=== PATIENT | female | born 1985 | race Caucasian/White ===

== ENCOUNTER 2016-09-12 01:26 | Emergency (ER) | payer MEDICAID ==
[~2016-09-12] VITALS: Ht 149.9 cm; Wt 75.0 kg
[~2016-09-12 01:26] MED LIST: ACYC800T PO; CETI10 PO; CIAL10TA PO; CLON0.5T PO; CLON0.5T16 PO; CYCL-36 PO; FLUO20CA4 PO; FLUO20TA20 PO; MIREIUD IU
[2016-09-12 01:34] VITALS: BP 116/80; PULSE 93; RESP 16; TEMP 97.9; O2SAT 98
[2016-09-12] MEDS ORDERED: ADDE10 PO (01:47)
[2016-09-12] MEDS ORDERED: SODIUM CHLOR 0.9% 1000 ML INJ 1,000 ML IV ONE (01:59)
[2016-09-12] MEDS ORDERED: ONDANSETRON HCL 4 MG/2 ML VIAL IVP ONE (02:00)
[2016-09-12] MEDS ORDERED: SODIUM CHLORIDE 0.9% FLUSH 10 ML FLUSH IVF PRN (02:00)
--- NOTE | 2016-09-12 02:09 | PD ---
HPI Chief Complaint: GI Complaint Time Seen by Provider: 01:59 Travel History International Travel<30 days: No Contact w/Intl Traveler<30days: No Traveled to known affect area: No History of Present Illness HPI 31-year-old female presents to the emergency department by private transportation the care of her and toddler for evaluation of one day of nausea vomiting and diarrhea. Patient states since approximate 4 PM she's had multiple episodes of vomiting and diarrhea. No hematemesis no coffee-ground emesis no melena hematochezia. No bilious emesis. Patient denies abdominal pain. Patient's had no fever chills. Patient denies dietary indiscretion well water ingestion or foreign travel. Her [id number] son has similar symptoms. Son symptoms reportedly began before hers. Spouse does not have same symptoms. Patient reports that sometimes the child eats some of the table food. has consumed same food and has been asymptomatic. Patient rates her pain 0/10 in intensity. Patient's had normal urine output. Patient denies any respiratory illness symptoms. Patient's last period was normal and she has an IUD. Patient denies . [facility] Past Medical History Narrative Medical ADHD and anxiety depression back pain oral surgery back surgery; no tobacco use no alcohol use; nursing notes reviewed ADHD: Yes Depression: Yes Cancer: No Cardiovascular Problems: No Diabetes: No Diminished Hearing: No Endocrine: No Genitourinary: No Hepatitis: No Hiatal Hernia: No Immune Disorder: No Musculoskeletal: No Neurologic: No Psychiatric: Yes (ANXIETY) Reproductive: No Respiratory: No Immunizations Current: Yes Thyroid Disease: No ?: Not LMP: 09/05/2016 : 1 Para: 1 Past Surgical History AICD: No Section: Yes (07/2015) Joint Replacement: No Oral Surgery: Yes (WISDOM TEETH EXTRACT.) Pacemaker: No Other Surgery: Yes (LAMINECTOMY 2013) Social History Alcohol Use: No Tobacco Use: No Substance Use: No Allergies-Medications (Allergen,Severity, Reaction): Coded Allergies: No Known Allergies (Unverified , 09/12/16) Reported Meds & Prescriptions Reported Meds & Active Scripts Active Zofran Odt (Ondansetron Odt) 4 Mg Tab 4 Mg SL Q6HR PRN Fluoxetine (Fluoxetine HCl) 20 Mg Cap 20 Mg PO DAILY Reported Adderall (Amphetamine-Dextroamphetamine) 10 Mg Tab 10 Mg PO BID Avoid late evening doses. Space doses at least 4 to 6 hours if more than once/day dosing. Review of Systems Except as stated in HPI: all other systems reviewed are Neg General / Constitutional: No: Fever, Chills HENT: No: Congestion Cardiovascular: No: Chest Pain or Discomfort Respiratory: No: Cough, Shortness of Breath Gastrointestinal: Positive: Nausea, Vomiting, Diarrhea, No: Abdominal Pain, Hematemesis, Hematochezia, Loss of Appetite Genitourinary: No: Dysuria, Flank Pain Musculoskeletal: No: Myalgias, Arthralgias Skin: No Rash Neurologic: No: Weakness Psychiatric: No: Anxiety Endocrine: No: Heat Intolerance Hematologic/Lymphatic: No: Lymph Node Enlargement Physical Exam Narrative GENERAL: Well-developed well-nourished female in no acute distress no respiratory distress SKIN: Warm and dry. HEAD: Normocephalic. EYES: No scleral icterus. No injection or drainage. ENT: Mucous membranes dry airway is patent NECK: Supple, trachea midline. No JVD or lymphadenopathy. CARDIOVASCULAR: Regular rate and rhythm without murmurs, gallops, or rubs. RESPIRATORY: Breath sounds equal bilaterally. No accessory muscle use. GASTROINTESTINAL: Abdomen soft, mild diffuse tenderness to palpation without guarding or rebound, nondistended. No guarding no rebound. MUSCULOSKELETAL: No cyanosis, or edema. BACK: Nontender without obvious deformity. No CVA tenderness. Data Data Last Documented VS Vital Signs Date Time Temp Pulse Resp B/P Pulse Ox O2 Delivery O2 Flow Rate FiO2 09/12/16 01:34 97.9 93 16 116/80 98 Orders Complete Blood Count With Diff (09/12/16 01:59) Comprehensive Metabolic Panel (09/12/16 01:59) Urinalysis - C+S If Indicated (09/12/16 01:59) Lipase (09/12/16 01:59) Iv Access Insert/Monitor (09/12/16 01:59) Ecg Monitoring (09/12/16 01:59) Oximetry (09/12/16 01:59) Ondansetron Inj (Zofran Inj) (09/12/16 02:00) Sodium Chlor 0.9% 1000 Ml Inj (Ns 1000 M (09/12/16 01:59) Sodium Chloride 0.9% Flush (Ns Flush) (09/12/16 02:00) Ed Urine Pregnancytest Poc (09/12/16 01:59) Ct Abd/Pel W Iv Contrast(Rout) (09/12/16 ) Iohexol 350 Inj (Omnipaque 350 Inj) (09/12/16 04:09) Labs Laboratory Tests Test 09/12/16 09/12/16 02:10 02:43 White Blood Count 17.2 TH/MM3 Red Blood Count 5.41 MIL/MM3 Hemoglobin 14.8 GM/DL Hematocrit 45.1 % Mean Corpuscular Volume 83.4 FL Mean Corpuscular Hemoglobin 27.3 PG Mean Corpuscular Hemoglobin 32.8 % Concent Red Cell Distribution Width 13.6 % Platelet Count 304 TH/MM3 Mean Platelet Volume 8.8 FL Neutrophils (%) (Auto) 91.6 % Lymphocytes (%) (Auto) 3.8 % Monocytes (%) (Auto) 2.1 % Eosinophils (%) (Auto) 0.4 % Basophils (%) (Auto) 2.1 % Neutrophils # (Auto) 15.6 TH/MM3 Lymphocytes # (Auto) 0.7 TH/MM3 Monocytes # (Auto) 0.4 TH/MM3 Eosinophils # (Auto) 0.1 TH/MM3 Basophils # (Auto) 0.4 TH/MM3 CBC Comment DIFF FINAL Differential Comment Sodium Level 140 MEQ/L Potassium Level 3.9 MEQ/L Chloride Level 108 MEQ/L Carbon Dioxide Level 22.8 MEQ/L Anion Gap 9 MEQ/L Blood Urea Nitrogen 15 MG/DL Creatinine 0.72 MG/DL Estimat Glomerular Filtration 94 ML/MIN Rate Random Glucose 151 MG/DL Calcium Level 8.5 MG/DL Total Bilirubin 0.4 MG/DL Aspartate Amino Transf 18 U/L (AST/SGOT) Alanine Aminotransferase 27 U/L (ALT/SGPT) Alkaline Phosphatase 110 U/L Total Protein 7.3 GM/DL Albumin 3.7 GM/DL Lipase 92 U/L Urine Color YELLOW Urine Turbidity SLIGHT Urine pH 6.0 Urine Specific [place] 1.023 Urine Protein NEG mg/dL Urine Glucose (UA) NEG mg/dL Urine Ketones NEG mg/dL Urine Occult Blood NEG Urine Nitrite NEG Urine Bilirubin NEG Urine Leukocyte Esterase NEG Urine WBC 0-2 /hpf Urine Squamous Epithelial > 8 /hpf Cells Urine Amorphous Sediment SMALL Urine Bacteria OCC /hpf Urine Mucus MOD /lpf Microscopic Urinalysis Comment CULT NOT INDICATED MDM Medical Decision Making Medical Screen Exam Complete: Yes Emergency Medical Condition: Yes Medical Record Reviewed: Yes Interpretation(s) CBC & BMP Diagram 09/12/16 02:10 Vital Signs Date Time Temp Pulse Resp B/P Pulse Ox O2 Delivery O2 Flow Rate FiO2 09/12/16 01:34 97.9 93 16 116/[address] abd/pel: No acute inflammatory process; IUD per reading radiologist, Dr Srivastava Differential Diagnosis Gastroenteritis, viral syndrome, dehydration, electronic disturbance, UTI, Narrative Course IV access obtained specimens collected and sent for resulting patient administer 1 L normal saline along with Zofran 4 mg IV CBC remarkable for leukocytosis 17,000 with left shift which reflects infectious as well as volume contracture as well as stress demargination as source for elevation left shift of 91/6 % concerning for bacterial etiology; UA pending. Add 3:20 AM patient reassessed and identified to have tenderness to the right lower quadrant will proceed with CT abdomen and pelvis with IV contrast to assess for appendicitis Patient feels markedly improved, taking oral hydration well, informed of imaging results reveals no acute abnormality no evidence for appendicitis; patient is stable for outpatient management Diagnosis Primary Impression: Gastroenteritis Referrals: Primary Care Physician call for appointment Patient Instructions: General Instructions Additional Instructions: Follow clear liquid diet for next 12-24 hours, then advance diet as tolerated to bland/Jonathan diet, then regular diet avoiding fried and fatty foods Increase fluid hydration Takes Zofran as prescribed as needed for nausea and/or vomiting No work times one day Take as needed acetaminophen/Tylenol for fever 100.4F or greater Follow-up with primary care provider Return to the emergency department for any concerns or change in condition Med/Other Pt SpecificInfo: Prescription(s) given Scripts Ondansetron Odt (Zofran Odt)4 Mg Tab4 Mg SL Q6HR PRN (Nausea/Vomiting) #7 TAB Ref 0 Prov:Jessica Stevens MD 09/12/16 Disposition: 01 DISCHARGE HOME Condition: Stable Jessica Stevens MD Sep 12, 2016 02:09
[2016-09-12 02:22] LABS: AUTOMATED NEUTROPHIL # 15.6 TH/MM3 (1.8-7.7); BASOPHIL # 0.4 TH/MM3 (0-0.2); BASOPHIL % 2.1 % (0.0-2.0); EOSINOPHIL # 0.1 TH/MM3 (0-0.4); EOSINOPHIL % 0.4 % (0.0-4.0); HEMATOCRIT 45.1 % (35.0-46.0); LYMPH % 3.8 % (9.0-44.0); LYMPHOCYTE # 0.7 TH/MM3 (1.0-4.8); MEAN CELL VOLUME 83.4 FL (80.0-100.0); MEAN CORPUSCULAR HEMOGLOBIN 27.3 PG (27.0-34.0); MEAN CORPUSCULAR HGB CONC 32.8 % (32.0-36.0); MONO % 2.1 % (0.0-8.0); NEUT % 91.6 % (16.0-70.0); PLATELET COUNT 304 TH/MM3 (150-450); RED BLOOD COUNT 5.41 MIL/MM3 (4.00-5.30); RED CELL DISTRIBUTION WIDTH 13.6 % (11.6-17.2); WHITE BLOOD COUNT 17.2 TH/MM3 (4.0-11.0)
[2016-09-12 02:29] LABS: CHLORIDE 108 MEQ/L (98-107); HEMO FLAGS DIFF FINAL; POTASSIUM 3.9 MEQ/L (3.5-5.1); SODIUM (NA) 140 MEQ/L (136-145)
[2016-09-12 02:33] LABS: ANION GAP 9 MEQ/L (5-15); BICARBONATE 22.8 MEQ/L (21.0-32.0); BLOOD UREA NITROGEN 15 MG/DL (7-18)
[2016-09-12 02:36] LABS: ALT (GPT) 27 U/L (10-53); AST (GOT) 18 U/L (15-37); GLOMERULAR FILTRATION RATE 94 ML/MIN (>89)
[2016-09-12 02:38] LABS: TOTAL BILIRUBIN ADULT 0.4 MG/DL (0.2-1.0)
[2016-09-12 02:39] LABS: ALKALINE PHOSPHATASE 110 U/L (45-117)
[2016-09-12 02:51] LABS: BLOOD, URINE NEG (NEG); GLUCOSE,URINE NEG (NEG); KETONE, URINE NEG (NEG); NITRITE,URINE NEG (NEG)
[2016-09-12 03:00] LABS: MUCUS URINE MOD /lpf (OCC); URINE COLOR YELLOW (YELLW/STRAW)
[2016-09-12 03:01] LABS: BACTERIA, URINE OCC /hpf; COMMENT (UR) CULT NOT INDICATED; CULTURE IF INDICATED CULT NOT INDICATED; SQUAMOUS EPITHELIAL CELL URINE > 8 /hpf (0-5); WBC, URINE 0-2 /hpf (0-5)
[2016-09-12] MEDS ORDERED: IOHEXOL 350 MG/ML 10 ML VIAL (for RAD DIAG) IV ONE (04:09)
--- NOTE | 2016-09-12 04:27 | RADHPO ---
EXAM DATE/TIME: 09/12/2016 03:41 [facility] COMPARISON: No previous studies available for comparison. INDICATIONS : Nausea, vomiting, and diarrhea. IV CONTRAST: 96 cc Omnipaque 350 (iohexol) IV ORAL CONTRAST: No oral contrast ingested. RADIATION DOSE: 14.72 CTDIvol (mGy) MEDICAL HISTORY : None SURGICAL HISTORY : Laminectomy. ENCOUNTER: Initial ACUITY: 1 day PAIN SCALE: 7/10 LOCATION: Abdomen. TECHNIQUE: Volumetric scanning of the abdomen and pelvis was performed. Using automated exposure control and ad justment of the mA and/or kV according to patient size, radiation dose was kept as low as reasonably achievable to obtain optimal diagnostic quality images. FINDINGS: LOWER LUNGS: The visualized lower lungs are clear. LIVER: Homogeneous density without lesion. There is no dilation of the biliary tree. No calcified gallston es. SPLEEN: Normal size without lesion. PANCREAS: Within normal limits. KIDNEYS: Normal in size and shape. There is no mass, stone or hydronephrosis. ADRENAL GLANDS: Within normal limits. VASCULAR: There is no aortic aneurysm. BOWEL/MESENTERY: The stomach, small bowel, and colon demonstrate no acute abnormality. There is nondistention of the c olon. There is no free intraperitoneal air or fluid. ABDOMINAL WALL: Within normal limits. RETROPERITONEUM: There is no lymphadenopathy. BLADDER: No wall thickening or mass. REPRODUCTIVE: IUD seen. INGUINAL: There is no lymphadenopathy or hernia. MUSCULOSKELETAL: Within normal limits for patient age. CONCLUSION: 1. No acute inflammatory process. 2. IUD. Momo Srivastava MD on September 12, 2016 at 4:24 Board Certified Radiologist. This report was verified electronically.
[2016-09-12] MEDS ORDERED: ZOFR4TAB3 SL (04:32)
[2016-09-12] MEDS ORDERED: ONDANSETRON HCL 4 MG/2 ML VIAL IV PUSH ONE (04:45)
== END 2016-09-12 05:04 | disposition home or self-care (01) ==
LOC: PHED 01:26
DX: K52.9 Noninfective gastroenteritis and colitis, unspecified (principal)
CPT/HCPCS: 74177; 80053; 81001; 83690; 84703; 85025; 96361; 96374; 96376; 99284; J2405; J7030; Q9967